=== PATIENT | male | born 1965 | race Caucasian/White ===

== ENCOUNTER → 2017-05-13 09:00 | Outpatient (CLI) | payer BC ==
[~2017-05-13 09:00] MED LIST: BASAGLAR K100 UNIT/1 SC; BAYER CHEWABLE81 MG PO; CORDARONE200 MG PO; GLUCOPHAGE XR750 MG PO; HEMOCYTE PLUS C1 CAP PO; HYDROCODONE-APA1 TAB PO; LIPITOR20 MG PO; LOPRESSOR25 MG PO
--- NOTE | 2017-05-17 09:53 | EC ---
PATIENT:YAZAN FUNEZ DATE OF SERVICE: 05/13/17 SEX: M MEDICAL RECORD: [id number] DATE OF : 63 [facility] AGE OF PATIENT: 52 ADMISSION DATE: 05/13/17 REFERRING PHYSICIAN: INTERPRETING PHYSICIAN: NIKA ADAMS MD ECHOCARDIOGRAM REPORT ECHO CHARGES 4 ECHO COMPLETE CLINICAL DIAGNOSIS: ABN EKG, CHEST PAIN ECHOCARDIOGRAPHIC MEASUREMENTS (adult normal given) AC root (d.<3.7cm) 3.4 cm LV Septum d (<1.2 cm> 0.90 cm Valve Excursion 1.8 cm LV Septum (systole) 1.4 cm Left Atria (s.<4.0cm> 3.7 cm LVPW d(<1.2cm) 1.2 cm RV (d.<2.3cm) 3.6 cm LVPW (sytole) 1.5 cm LV diastole(<5.6CM) 5.3 cm MV E-F(>70mm/sec) cm LV systole 3.7 cm LVOT Diameter 2.0 cm MV exc.(>10mm) cm Est.ejection fraction (50-75%) % Pericardial Effusion N DOPPLER: LVIT cm/sec A 54.0 cm/sec E 69.0 cm/sec LA cm/sec RVSP 18 mmHg LVOT 128 cm/sec AOP1/2T m/s Asc. Ao 134 cm/sec RVOT 68 cm/sec RA cm/sec PA 128 cm/sec AV Gradient Peak 7.23 mmHg AV Mean 3.90 mmHg AV Area 3.1 cm MV Gradient Peak 2.81 mmHg MV Mean 0.99 mmHg MV Area cm COMMENTS: Infrastructure Manager: 2 SERAFIN GARICA Dry Starch Supervisor: 4 Dr. Adams TAPE# PACS DATE OF SERVICE: 05/13/2017 TRANSTHORACIC ECHOCARDIOGRAM FINDINGS: 1. The left ventricle is normal size, normal shape, normal function, ejection fraction of 55%. Inflow characteristics are normal. 2. The mitral valve has [id number]-us-vlnf mitral regurgitation. 3. The left atrium is normal size, normal function. 4. The tricuspid valve has trace tricuspid regurgitation, normal right ECHOCARDIOGRAM REPORT [id number] YAZAN FUNEZ ventricular systolic pressures. 5. Pericardium is normal. There is no pericardial effusion. 6. Pulmonic valve is not well visualized, but otherwise normal by Doppler evaluation. 7. The right atrium is normal size, normal function. 8. Right ventricle is mildly dilated at 3.1 to 3.2 cm. CONCLUSIONS: The patient has structurally normal heart with mildly dilated right ventricle with normal demonstrated right ventricular pressures. TRANSINT:[id number] Voice Confirmation ID: [id number] DOCUMENT ID: [id number] NIKA ADAMS MD at 0953 CC: [id number] DICTATION DATE: 05/14/17 1251 EXCELSIOR PICKER: 05/14/17 1356 DEP CLI 05/13/17 [facility] [address] [place] [address]
[2017-06-10 09:58] VITALS: BMI 29.7
== END | disposition home or self-care (01) ==
LOC: D.ECHO 09:00
DX: R94.31 Abnormal electrocardiogram [ECG] [EKG] (principal); R07.9 Chest pain, unspecified

== ENCOUNTER 2017-05-20 06:05 | Outpatient (CLI) | payer BC ==
--- NOTE | ~2017-05-20 | HEMODYNAMI ---
PATIENT:YAZAN FUNEZ MEDICAL RECORD: [id number] : 63 LOCATION:[facility] ADMISSION DATE: 05/20/17 Generatedon:05/20/20177:55 Patient name: YAZAN FUNEZ Patient #: [id number] SSN: : 1965 Date of study: 05/20/2017 Page: Of Hemodynamic Procedure Report Patient Data Patient Demographics Procedure consent was obtained First Name: YAZAN Gender: Male Last Name: DEE DEE : 1965 Middle Initial: BONG Age: 52 year(s) Patient #: [id number] Race: Unknown Additional ID: [id number] Contact details [address]: [address] [place] [address] State: [place] City: [place] Zip code: [address] Admission Admission Data Admission Date: 05/20/2017 Admission Time: 6:05 Procedure Procedure Types Cath Procedure Diagnostic Procedure LHC LHC w/Coronaries Miscellaneous Procedures Moderate Sedation up to 15 minutes Procedure Description Procedure Date Procedure Date: 05/20/2017 Procedure Start Time: 7:39 Procedure End Time: 7:55 Procedure Staff Name Function Leandro Howard MD Performing Physician Angeles Lacy RT Scrub Elvin Buck RN Nurse Josue Willoughby RT Monitor Procedure Data Cath Procedure Fluoroscopy Diagnostic fluoroscopy Total fluoroscopy Time: 2 time: 2 min min Diagnostic fluoroscopy Total fluoroscopy dose: 523 dose: 523 mGy mGy Contrast Material Contrast Material Type Amount (ml) Isovue 300 35 Entry Location Entry Primary Successful Side Size Upsize Upsize Entry Closure Succes sful Closure Location (Fr) 1 (Fr) 2 (Fr) Remarks Device Remarks Femoral Right 5 Fr Exoseal artery Estimated blood loss: 10 ml Diagnostic catheters Device Type Used For End Catheter Placement Cordis 5Fr JL 4.0 Procedure Catheter (MP) Cordis 5Fr 3DRC Catheter Procedure (MP) Cordis 5Fr Pigtail Procedure Catheter (MP) Procedure Complications No complications Procedure Medications Medication Administration Route Dosage 0.9% NaCl I.V. 100 ml/hr Oxygen NC 2 l/min Heparin Flush Bag added to field 2 bags (1000units/500ml NS) Lidocaine 2% added to field 20 Versed I.V. 2 mg Fentanyl I.V. 25 mcg Hemodynamics Rest Heart Rate: 79 (bpm) Pressure Samples Time Site Value (mmHg) Purpose Heart Use Rate(bpm) 7:43 AO 114/64(84) Snapshot 73 7:49 LV 128/-11,9 EDP 75 7:50 AO 117/68(89) Pullback 72 7:50 LV 110/7,7 Pullback 72 Gradients Valve Time Site 1 Site 2 Mean SEP/DFP Peak To Heart Use (mmHg) (sec/min) Peak Rate (mmHg) (bpm) Aortic 7:50 LV AO 0 9 0 72 110/7,7 117/68(89) Calculations Valve P-P Mean Valve Index Valve Source Name Gradient Area Flow (cm2) Aortic 0 0 0 0 Snapshots Pre Cath Intra NCS Post Cath Vital Signs Time Heart Resp SPO2 etCO2 NIBP (mmHg) Rhythm Pain Sedation Rate (ipm) (%) (mmHg) Status Level (bpm) 7:33:15 82 18 100 34.7 164/97(129) NSR 0 (11) 10(A) , No pain 7:37:58 79 18 98 34.7 150/96(123) NSR 0 (11) 10(A) , No pain 7:42:39 73 16 97 38.5 140/87(105) NSR 0 (11) 9(A) , No pain 7:47:29 73 16 96 36.9 139/85(100) NSR 0 (11) 9(A) , No pain 7:52:12 76 16 97 34.7 139/92(109) NSR 0 (11) 10(A) , No pain Medications Time Medication Route Dose Verified Delivered Reason Notes Effec tiveness by by 7:27:50 0.9% NaCl I.V. 100 Elvin Elvin Per ml/hr Heber montejo RN RN 7:28:02 Oxygen NC 2 Elvin Elvin Per l/min Heber Buck physician RN RN 7:28:35 Heparin Flush added 2 Elvin Leandro used for Bag to bags Heber Howard MD procedure (1000units/500ml field RN NS) 7:30:02 Lidocaine 2% added 20ml Elvin Elvin for local to vial Lorigan Lorigan anesthetic field RN RN 7:39:30 Versed I.V. 2 mg Elvin Elivn for Lorigan Lorigan sedation RN RN 7:39:41 Fentanyl I.V. 25 Elvin Elvin for mcg Lorigan Lorigan sedation RN staff psychologist Log Time Note 7:00:24 Josue Willoughby RT(R) sent for patient. Start room use. 7:11:25 Time tracking: Regular hours 7:11:29 Plan of Care:Hemodynamics will remain stable., Cardiac rhythm will remain stable., Comfort level will be maintained., Respiratory function will remain adequate., Patient/ family verbilizes understanding of procedure., Procedure tolerated without complication., Recovers from procedure without complications.. 7:22:28 Patient received from Pre/Post Procedure Room to CCL 1 Alert and oriented. Tansferred to table in Supine position. 7:22:31 Warm blankets applied, and magui hugger turned on for patient comfort. 7:22:32 Correct patient and procedure confirmed by team. 7:22:33 Signed procedure consent form obtained from patient. 7:27:50 0.9% NaCl 100 ml/hr I.V. was administered by Elvin Buck RN; Per physician; 7:28:02 Oxygen 2 l/min NC was administered by Elvin Buck RN; Per physician; 7:28:35 Heparin Flush Bag (1000units/500ml NS) 2 bags added to field was administered by Leandro Howard MD; used for procedure; 7:30:02 Lidocaine 2% 20ml vial added to field was administered by Elvin Buck RN; for local anesthetic; 7:32:17 Vital chart was started 7:36:36 ECG and BP/O2 sat monitors applied to patient. 7:36:38 Baseline sample Acquired. 7:36:42 Rhythm: sinus rhythm 7:36:43 Full Disclosure recording started 7:37:00 H&P Date Dictated: 05/15/2017 Within 30 days and on chart., H&P Addendum completed by physician on day of procedure. (MUST COMPLETE FOR ALL OUTPATIENTS). 7:37:03 Pre-procedure instructions explained to patient. 7:37:03 Pre-op teaching completed and patient verbalized understanding. 7:37:08 Family in waiting room. 7:37:10 Patient NPO since Midnight. 7:37:13 Is the patient allergic to Iodine/contrast media? No. 7:37:16 Is patient on blood thinner?No 7:37:18 Patient diabetic? Yes. 7:37:19 If diabetic: On Metformin? Yes 7:37:21 If on Metformin: Last Dose? 05/20/2017 7:37:24 Previous problem with sedation/anesthesia? No ? 7:37:29 Snore? Yes 7:37:34 Sleep apnea? No 7:37:35 Deviated septum? No 7:37:36 Opens mouth fully? Yes 7:37:37 Sticks out tongue? Yes 7:37:39 Airway obstruction? No ? 7:37:42 Dentures? No ? 7:37:44 Pre procedure: right dorsailis pedis pulse 1+ Palpable, but thready & weak; easily obliterated 7:37:50 Modified [facility] test Ulnar > 7 seconds. 7:38:08 FAILED ALLENS 7:38:11 Patient pain scale 0/10 ?. 7:38:17 IV patent on arrival in left forearm with 0.9% NaCl at O. 7:38:19 Lab results completed and on chart. 7:38:23 Right groin area was prepped with chlora-prep and draped in sterile fashion 7:38:24 Alarms reviewed by R. N. 7:38:24 Sharps counted by scrub and verified by R.N. 7:38:26 --------ALL STOP TIME OUT------ 7:38:27 Final Timeout: patient, procedure, and site verified with staff and physician. All members of the team are in agreement. 7:38:29 Right groin site verified by team. 7:38:31 Physical assessment completed. ASA score P 2 - A patient with mild systemic disease as per Leandro Howard MD. 7:38:34 Sedation plan: IV Moderate Sedation Versed, Fentanyl 7:39:04 Use device set Femoral Dx 7:39:05 Tegaderm 4 x 4 opened to sterile field. 7:39:06 Acist Hand Control opened to sterile field. 7:39:08 Acist Manifold opened to sterile field. 7:39:09 Acist Syringe opened to sterile field. 7:39:09 Bag Decanter opened to sterile field. 7:39:09 Medline Cath Pack opened to sterile field. 7:39:10 Terumo 5Fr Driggs Sheath opened to sterile field. 7:39:10 St Ace 260cm J .035 wire opened to sterile field. 7:39:11 Diagnostic Infinity 5Fr Multipack catheter opened to sterile field. 7:39:19 Cook 4Fr Micropuncture ([id number]) opened to sterile field. 7:39:28 Procedure started. 7:39:30 Versed 2 mg I.V. was administered by Elvin Buck RN; for sedation; 7:39:32 Local anesthetic to right femoral artery with Lidocaine 2% by Leandro Howard MD.INITIAL ACCESS ONLY 7:39:41 Fentanyl 25 mcg I.V. was administered by Elvin Buck RN; for sedation; 7:41:54 Zero performed for pressure channel P1 7:41:56 Zero performed for pressure channel P1 7:42:01 Access obtained with 4Fr micropunture. 7:42:14 A 5 Fr sheath was inserted into the Right Femoral artery 7:42:20 A Cordis 5Fr JL 4.0 Catheter (MP) was advanced over the wire and used for Procedure. 7:43:27 LCA angiography performed. 7:45:47 Catheter exchanged over wire. 7:46:48 A Cordis 5Fr 3DRC Catheter (MP) was advanced over the wire and used for Procedure. 7:47:38 RCA angiography performed. 7:48:06 Catheter exchanged over wire. 7:48:14 A Cordis 5Fr Pigtail Catheter (MP) was advanced over the wire and used for Procedure. 7:49:40 LV angiography performed. 7:49:42 LV gram done using THORPE 7:49:47 EF : 50 % 7:50:08 LV hemodynamics recorded. 7:50:11 Injector settings: Ml/sec: 12, Volume: 8, 7:50:22 Catheter removed. 7:50:31 Cordis 5Fr Exoseal opened to sterile field. 7:50:39 Sheath removed intact; hemostasis achieved with Exoseal to the Right Femoral artery. 7:50:51 Procedure ended.(Physican Out) 7:50:58 Fluoroscopy time 02.00 minutes. 7:51:03 Fluoroscopy dose: 523 mGy 7:51:03 Flurop Dose total: 523 7:51:06 Contrast amount:Isovue 300 35ml. 7:51:08 Sharps counted by scrub and verified by R.N. 7:51:11 Insertion/operative site no bleeding no hematoma. 7:51:15 Post-op/insertion site Right Femoral artery dressed using a 4 x 4 and Tegaderm. 7:51:16 Post Procedure Pulses reassessed and unchanged 7:51:19 Post-procedure physical assessment completed. ASA score P 2 - A patient with mild systemic disease as per Leandro Howard MD. 7:51:22 Post procedure rhythm: unchanged. 7:51:25 Estimated blood loss: 10 ml 7:51:27 Post procedure instruction explained to patient.Patient verbalizes understanding. 7:51:27 Patient needs reinforcement of post procedure teaching. 7:51:36 Procedure type changed to Cath procedure, Diagnostic procedure, LHC, LHC w/Coronaries, Miscellaneous Procedures, Moderate Sedation up to 15 minutes 7:51:38 Procedure and supply charges have been captured, reviewed, submitted and are correct. 7:51:45 Procedure Complication : No complications 7:55:08 Vital chart was stopped 7:55:08 See physician's report for complete and final results. 7:55:10 Report given to Pre/Post Procedure Room. 7:55:13 Patient transfered to Pre/Post Procedure Room with Stretcher. 7:55:16 Procedure ended. 7:55:16 Full Disclosure recording stopped 7:55:23 End room use (Document Last) Device Usage Item Name Manufacture Quantity Catalog Hospital Part Current Minimal Lot# / Number Charge Number Stock Stock Serial# Code Tegaderm 4 x 3M 1 [id number] [id number] 938783 003463 5 4 Acist Hand Acist 1 38919 620767 221342 762302 5 Control [employer] Inc Acist Acist 1 37055 244397 230805 217890 5 Manifold Medical [employer] Inc Acist Syringe Acist 1 04172 014933 584223 535063 20 Medical Systems Inc Bag Decanter Microtek 1 2001S 452731 29321 283599 5 Medical Inc. Medline Cath Cardinal 1 [id number] 740105 29628 766221 5 Built In Terumo 5Fr Terumo 1 [id number] 533994 806996 682672 [address] Ace 260[address] St Ace 1 596504 793131 286818 283217 30 J .035 wire Diagnostic Cardinal 1 [id number] 298013 32292 414920 30 Infinity 5Fr Health Multipack catheter Cook 4Fr Cook Medical 1 [id number] 017732 706390 938244 5 Micropuncture ([id number]) Cordis 5Fr JL Cardinal 1 [id number] 5 4.0 Catheter Health (MP) Cordis 5Fr Cardinal 1 596795 5 3DRC Catheter Health (MP) Cordis 5Fr Cardinal 1 091062 5 Pigtail Health Catheter () Cordis 5Fr Cardinal 1 EX500 698482 538478 174555 10 [facility] [employer] Signature Audit [place] Stage Time Signature Unsigned Intra-Procedure 05/20/2017 Josue Willoughby 7:55:48 AM RT(R) Signatures Monitor : Josue Willoughby RT Signature : Date : Time : [id number] [place] [address]
[2017-05-20] MEDS ORDERED: GLUCOPHAGE XR750 MG PO (06:30)
[2017-05-20] MEDS ORDERED: BAYER CHEWABLE81 MG PO (06:31)
[2017-05-20] MEDS ORDERED: BASAGLAR K100 UNIT/1 SC (06:31)
[2017-05-20] MEDS ORDERED: LIPITOR20 MG PO (06:32)
[2017-05-20 06:39] VITALS: BP 152/84; BMI 28.4
[2017-05-20 07:18] LABS: BASOPHILS 0.5 % (0-2); HEMATOCRIT 46.7 % (42.0-54.0); HEMOGLOBIN 16.1 g/dL (13.5-17.5); IMMATURE GRANULOCYTES 0.5 % (0-5); MCH 30.5 pg (26.0-34.0); MCHC 34.5 g/dL (31.0-37.0); MCV 88.4 fL (80.0-100.0); MEAN PLATELET VOLUME 10.6 fL (7.4-10.4); MONOCYTES 7.9 % (2-11); NEUTROPHILS 49.1 % (40-80); PLATELET COUNT 161 10x3/uL (130-400); RBC 5.28 10x6/uL (4.20-6.10); RDW 12.7 % (11.5-14.5); WBC 6.6 10x3/uL (4.8-10.8)
[2017-05-20 07:23] LABS: CALC OSMOLALITY 291 mosm/kg (275-300); CALCIUM 8.9 mg/dL (8.5-10.1); CARBON DIOXIDE 24.5 mmol/L (21.0-32.0); CHLORIDE - SERUM 104 mmol/L (98-107); GLUCOSE 266 mg/dL (74-106); POTASSIUM - SERUM 4.2 mmol/L (3.5-5.1); SODIUM 139 mmol/L (136-145); UREA NITROGEN 26 mg/dL (7-18); eGFR NON AFRICAN AMERICAN 83 mL/min (90-120)
--- NOTE | 2017-05-20 08:15 | NUR ---
2L NC, NO RESP DISTRESS NOTED. RIGHT GROIN 5F EXOSEAL CDI, NO BLEEDING OR HEMATOMA NOTED. NO C/O PAIN OR NAUSEA. VSS. AT BEDSIDE, CALL LIGHT WITHIN REACH.
--- NOTE | 2017-05-20 08:45 | NUR ---
RESTING QUIETLY WITH EYES CLOSED. RIGHT GROIN 5F EXOSEAL CDI, NO BLEEDING OR HEMATOMA NOTED. 2L NC, NO RESP DISTRESS NOTED. VSS. WILL CONTINUE TO MONITOR.
--- NOTE | 2017-05-20 09:00 | NUR ---
RIGHT GROIN 5F EXOSEAL CDI, NO BLEEDING OR HEMATOMA NOTED. 2L NC, NO RESP DISTRESS. VSS. CALL LIGHT WITHIN REACH.
--- NOTE | 2017-05-20 09:47 | NUR ---
HOB ELEVATED 30 DEGREES. RIGHT GROIN 5F EXOSEAL CDI, NO BLEEDING NOTED. SANDWICH TRAY AND DRINK GIVEN.
--- NOTE | 2017-05-20 10:19 | NUR ---
LEFT FA PIV D/C'D WITH CATHETER INTACT, BAND AID TO SITE. UP TO BEDSIDE TO GET DRESSED.
--- NOTE | 2017-05-20 10:25 | NUR ---
DISCHARGE INSTRUCTIONS GIVEN, VERBALIZED UNDERSTANDING.
--- NOTE | 2017-05-20 10:31 | NUR ---
TAKEN OUT VIA WHEELCHAIR BY CATH SNAKER TRACTOR DRIVER. LEFT FACILITY WITH FAMILY MEMBER AND ALL PERSONAL BELONGINGS.
== END 2017-05-20 10:30 | disposition home or self-care (01) ==
LOC: D.CATH 06:05
PROVIDERS: Internal Medicine Cardiovascular Disease
DX: I25.119 Atherosclerotic heart disease of native coronary artery with unspecified angina pectoris (principal); I25.5 Ischemic cardiomyopathy; E11.9 Type 2 diabetes mellitus without complications; Z01.812 Encounter for preprocedural laboratory examination

== ENCOUNTER → 2017-05-26 11:54 | Outpatient (CLI) | payer BC ==
[2017-05-20 06:39] VITALS: BMI 28.4
[2017-05-27 11:19] LABS: HEPATITIS C ANTIBODY <0.1 (0.0-0.9)
== END | disposition home or self-care (01) ==
LOC: D.US 11:30
PROVIDERS: Internal Medicine Cardiovascular Disease
DX: Z01.812 Encounter for preprocedural laboratory examination (principal); R55 Syncope and collapse

== ENCOUNTER 2017-06-09 05:09 | Inpatient (IN) | payer BC ==
[2017-06-08 10:57] LABS: APPEARANCE CLEAR (CLEAR); BILIRUBIN NEGATIVE (NEGATIVE); COLOR YELLOW (YELLOW); GLUCOSE 1000 mg/dL (NEGATIVE); KETONE NEGATIVE (NEGATIVE); NITRITE NEGATIVE (NEGATIVE); PROTEIN NEGATIVE (NEGATIVE); SPECIFIC GRAVITY 1.015 (1.005-1.020); UROBILINOGEN NORMAL (NORMAL)
[2017-06-08 11:25] LABS: BASOPHILS 0.5 % (0-2); EOSINOPHILS 2.1 % (0-7); HEMATOCRIT 47.8 % (42.0-54.0); HEMOGLOBIN 16.6 g/dL (13.5-17.5); IMMATURE GRANULOCYTES 0.4 % (0-5); LYMPHOCYTES 36.6 % (15-50); MCH 30.2 pg (26.0-34.0); MCHC 34.7 g/dL (31.0-37.0); MCV 87.1 fL (80.0-100.0); MEAN PLATELET VOLUME 10.3 fL (7.4-10.4); MONOCYTES 6.4 % (2-11); PLATELET COUNT 185 10x3/uL (130-400); RBC 5.49 10x6/uL (4.20-6.10); RDW 12.6 % (11.5-14.5); WBC 7.7 10x3/uL (4.8-10.8)
[2017-06-08 11:44] LABS: APTT 23.9 SECONDS (22.8-39.4); INR 0.94 (0.85-1.17); PROTIME 12.5 SECONDS (11.6-15.0)
[2017-06-08 11:55] LABS: ALBUMIN 4.1 g/dL (3.4-5.0); ANION GAP 13.2 mmol/L (8-16); BILIRUBIN - TOTAL 0.55 mg/dL (0.2-1.3); CALCIUM 9.4 mg/dL (8.5-10.1); CARBON DIOXIDE 26.2 mmol/L (21.0-32.0); CREATININE - SERUM 1.2 mg/dL (0.6-1.3); PHOSPHOROUS 3.5 mg/dL (2.5-4.9); POTASSIUM - SERUM 4.4 mmol/L (3.5-5.1); PROTEIN - SERUM 7.6 g/dL (6.4-8.2); T4 THYROXIN - FREE 0.99 ng/dL (0.76-1.46); THYROID STIMULATING HORMONE 2.52 uIU/mL (0.36-3.74); URIC ACID 4.7 mg/dL (2.6-7.2)
[2017-06-08 12:13] LABS: HEMOGLOBIN A1C 9.4 % (4.8-6.0)
[2017-06-08 13:37] LABS: COLD SCREEN @ 4 DEGREES NEGATIVE (NEGATIVE); COLD SCREEN ROOM TEMP NEGATIVE (NEGATIVE)
[2017-06-09] VITALS (34 sets, daily range): BP systolic 89–142; BP diastolic 51–86; BMI 27.8; BMI 29.8
[~2017-06-09] VITALS: Ht 182.9 cm; Wt 98.7 kg
[~2017-06-09 05:09] MED LIST changes: -CORDARONE200 MG PO; -HEMOCYTE PLUS C1 CAP PO; -HYDROCODONE-APA1 TAB PO; -LOPRESSOR25 MG PO
[2017-06-09 08:04] LABS: PLT FUNCT.(P2Y12) PLAVIX 203 PRU (194-418)
[2017-06-09 14:58] LABS: MCH 30.4 pg (26.0-34.0); MCHC 35.4 g/dL (31.0-37.0); MCV 85.9 fL (80.0-100.0); MEAN PLATELET VOLUME 9.9 fL (7.4-10.4); RDW 12.6 % (11.5-14.5)
[2017-06-09 15:05] LABS: CALC OSMOLALITY 299 mosm/kg (275-300); CALCIUM 7.6 mg/dL (8.5-10.1); CHLORIDE - SERUM 110 mmol/L (98-107); GLUCOSE 208 mg/dL (74-106); SODIUM 146 mmol/L (136-145); UREA NITROGEN 21 mg/dL (7-18)
[2017-06-09 15:06] LABS: CREATININE - SERUM 0.8 mg/dL (0.6-1.3); eGFR NON AFRICAN AMERICAN > 90 mL/min (90-120)
[2017-06-09 15:15] LABS: APTT 29.4 SECONDS (22.8-39.4); HEMATOCRIT 33.6 % (42.0-54.0); HEMOGLOBIN 11.9 g/dL (13.5-17.5); INR 1.19 (0.85-1.17); RBC 3.91 10x6/uL (4.20-6.10); WBC 10.8 10x3/uL (4.8-10.8)
--- NOTE | 2017-06-09 16:00 | NUR ---
RECIEVED PT FROM OR. ATTACHED TO ICU MONITORS. ADMISSION ASSESSMENT COMPLETE PER FLOWSHEET. REFER FOR DETAILS.
--- NOTE | 2017-06-09 17:00 | NUR ---
FAMILY AT BEDSIDE. UPDATE PROVIDED.
--- NOTE | 2017-06-09 18:00 | NUR ---
DR. CUMMINGS AT BEDSIDE. CHANGED TPM SETTINGS TO VVI 60/VMA 10.
--- NOTE | 2017-06-09 19:00 | NUR ---
REC'D TO CARE, BRIDGE CONSTRUCTION INSPECTOR PER FLOWSHEET. PT ON MECH VENT VIA OETT - SEE FLOWSHEET. PT OPENS EYES TO NAME AND NODS HEAD APPROP.R IJ KAYLANTIERNEY, DSG C/D/I - TO VIGILANCE - SEE FLOWSHEET, WILL TITRATE GTTS PER MD ORDERS. L DLSC, DSG C/D/I. STERNAL, SUBSTERNAL AND R LEG DSGS NOTED. [employer] TPM VVI 60 - SENSING- WIRES SECURED TO SUBSTERNAL DSG WITH CT X 3 TO 20CM SXN, BLOODY DRAINAGE, NO AIR LEAK NOTED. R RADIAL A-LINE, DSG C/D/I, ARM BOARD IN USE. CRITICORE ZEPEDA PATENT WITH CLEAR, JONG URINE NOTED. B/L SOFT WRIST RESTRAINTS ON PER MD ORDERS. ALARMS ON. WILL CONT 1:1 NURSING CARE.
--- NOTE | 2017-06-09 20:20 | NUR ---
DR. CUMMINGS UPDATED OVER PHONE, STATUS REPORT GIVEN, NO NEW ORDERS. PT WAKING UP, ORIENTED TO SITUATION BY NURSE. VSS.
--- NOTE | 2017-06-09 20:40 | NUR ---
AT , UPDATE GIVEN AND QUESTIONS ANSWERED.
--- NOTE | 2017-06-09 20:57 | NUR ---
CONT TO WEAN VENT, PT UNDERSTANDS WEANING PROCESS. VSS.
--- NOTE | 2017-06-09 21:15 | NUR ---
VENT TO CPAP PER RT. PT NODS "YES" TO UNDERSTANDING. RR 14-16, UNLAB. POX 99%.
--- NOTE | 2017-06-09 22:14 | NUR ---
WNL. PLAN TO EXTUBATE.
--- NOTE | 2017-06-09 22:20 | NUR ---
PT EXTUBATED TO 4L NC, GOOD COUGH. RESTRAINTS D/C'D. ORAL CARE DONE.
--- NOTE | 2017-06-09 22:57 | NUR ---
AT BS. PT USING MORPHINE RECORD LABEL INTERNSHIP - REPORTS "ITS BETTER". REPOSITIONED WITH PILLOWS FOR COMFORT. CONT 1:1 NURSING CARE. VSS.
[2017-06-10] VITALS (93 sets, daily range): BP systolic 91–120; BP diastolic 46–63; Ht 182.9 cm; Wt 98.7 kg
--- NOTE | 2017-06-10 02:11 | NUR ---
ABGS RESULTED, KCL COVERAGE PER S/S. PT REPOSITIONED UP IN BED, CONT TO TAKE ICE CHIPS - NO NAUSEA. PT USING HAM STRIPPER.
--- NOTE | 2017-06-10 03:17 | NUR ---
REASSESSMENT PER FLOWSHEET, NO ACUTE CHANGES. RT AT BS FOR RESP TX. I.S. TO 750 X 10, WEAK COUGH BUT IMPROVED EFFORT.
[2017-06-10 06:26] LABS: MCH 30.1 pg (26.0-34.0); MCHC 34.4 g/dL (31.0-37.0); MCV 87.5 fL (80.0-100.0); MEAN PLATELET VOLUME 9.3 fL (7.4-10.4)
[2017-06-10 06:28] LABS: HEMATOCRIT 25.9 % (42.0-54.0); HEMOGLOBIN 8.9 g/dL (13.5-17.5); RBC 2.96 10x6/uL (4.20-6.10); WBC 7.3 10x3/uL (4.8-10.8)
[2017-06-10 07:02] LABS: ALBUMIN 3.5 g/dL (3.4-5.0); ALKALINE PHOSPHATASE 13 U/L (46-116); BILIRUBIN - TOTAL 0.44 mg/dL (0.2-1.3); CALCIUM 8.2 mg/dL (8.5-10.1); CARBON DIOXIDE 26.3 mmol/L (21.0-32.0); CHLORIDE - SERUM 111 mmol/L (98-107); CREATININE - SERUM 0.9 mg/dL (0.6-1.3); POTASSIUM - SERUM 4.1 mmol/L (3.5-5.1); SODIUM 146 mmol/L (136-145); UREA NITROGEN 16 mg/dL (7-18); eGFR NON AFRICAN AMERICAN > 90 mL/min (90-120)
[2017-06-10 07:03] LABS: ALT (SGPT) 27 U/L (10-68); CALC OSMOLALITY 292 mosm/kg (275-300); GLUCOSE 113 mg/dL (74-106); PROTEIN - SERUM 5.3 g/dL (6.4-8.2)
--- NOTE | 2017-06-10 07:30 | NUR ---
SHIFT ASSESSMENT VIA FLOWSHEET. SEE FOR DETAILS. VSS, SR ON CM.
--- NOTE | 2017-06-10 07:46 | NUR ---
PT PERFORMS I/S, 750-1000 X10. WEAK COUGH, GOOD EFFORT. PT EDUCATED ABOUT IMPORTANCE OF POST OF COUGHING AND DEEP BREATHING.
--- NOTE | 2017-06-10 07:48 | NUR ---
DR ALTMAN HERE TO SEE PATIENT.
--- NOTE | 2017-06-10 08:10 | NUR ---
AT BEDSIDE, UPDATE PROVIDED. PT AWAKENS BRIEFLY, C/O PAIN, PUSHES FIELD COIL WINDER THEN GOES BACK TO SLEEP. VSS. 1:1 NURSING CARE IN PROGRESS.
--- NOTE | 2017-06-10 08:21 | NUR ---
DR ADAMS HERE TO SEE PT.
--- NOTE | 2017-06-10 08:50 | NUR ---
DR CUMMINGS HERE TO SEE PT, NEW ORDERS RECEIVED.
--- NOTE | 2017-06-10 09:12 | NUR ---
STEFANY BERNAL FINISHED CIGAR MAKER AT BEDSIDE. PT AWAKE AND ANSWERING QUESTIONS.
--- NOTE | 2017-06-10 11:07 | NUR ---
RT AT BEDSIDE FOR BREATHING TX.
--- NOTE | 2017-06-10 11:15 | NUR ---
REASSESSMENT VIA FLOWSHEET, SEE FOR DETAILS. VSS, SR ON CM. WEANING DOPAMINE. 1:1 NURSING CARE.
--- NOTE | 2017-06-10 11:45 | NUR ---
RECEIVED PT FOR CARE FROM GILSON PETERSON RN.
--- NOTE | 2017-06-10 13:17 | NUR ---
* Is the patient Alert and Oriented? Yes 0 * How many steps to enter\exit or inside your home? 0 0 * PCP Dr. Gomes 0 * Pharmacy [facility] 0 * Preadmission Environment Home with Family 0 * ADLs Independent 0 * Equipment Glucometer 0 * List name and contact numbers for known caregivers / representatives who currently or will assist patient after discharge: Spouse - Kitty [phone] 0 * Additional services required to return to the preadmission environment? No 0 * Can the patient safely return to the preadmission environment? Yes 0 * Has this patient been hospitalized within the prior 30 days at any hospital? No Patient Name: YAZAN FUNEZ Admission Status: Elective Accout number: [id number] Admission Date: 06-09-2017 : 1965 Admission Diagnosis: Attending: JAIME CUMMINGS Current LOS: 1 Anticipated DC Date: 06-17-2017 Planned Disposition: Home Primary Insurance: Insurity OUT OF STATE Discharge Planning Comments: CM met with patient to assess dc plans/needs. Patient states he lives at home with his , Kitty. 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 At dc, he will return home with his . No needs identified or verbalized at this time. CM will follow & assist as needed. Digital Production Artist: Paradise Randall
--- NOTE | 2017-06-10 19:00 | NUR ---
1900: Pt rec'd resting HOB 30 degrees with eyes open. Pt pupils ALNOZO+ bilat. Pt is alert and oriented. Pt c/o pain from incisions and back soreness. Pt denies tingling, numbness, or nausea at this time. Pt follows all commands and moves x4 extrem weakly vs. gravity. Pt breathing shallow in quality with GF38-78b with SPO2 98%. Lungs clear bilat with decreased bases with auscultation. MMP and no cyanosis noted. Encouraged DBC. Pt with strong non productive cough at this time. RT in room and performed IS. Max TV 1000cc achieved. S1S2 regular ST 100's on CM. Right jugular [place] Franky cath transduced to CM with PA/CVP monitorring with proper w/fs. Prox infusion port with Amiodarone, NS, Plasmalyte as per IV flow sheet. Midline sternal dressing CDI, distal portion of dressing in the epigastric area with TPM wires taped intact. TPM VVI 60/0/10 showing V-Sensing. ABD distended and pt reports he is not passing gas at this time. BS absent x4. Pt does not c/o tenderness or pain in ABD with palpation. Gerard to gravity with approx 30 cc/hr dark yellow UOP. Criticore collection device in use with Temp 38.2C noted. Right lower extrem with multiple small incision sites coverred with 4x4s and hepafix tape. X2 JAVIER drains noted with minimal output. (See drains in assessment) Bilateral PAULINA/SCD intact. Right radial ART line with armboard support intact and transduced to CM with proper wf and monitorring. SR up x2, SHEET ROCK APPLIER in use and pt demonstrated use, 1:1 nursing continues.
--- NOTE | 2017-06-10 20:00 | NUR ---
2000: Assisted pt with turning onto side and provided water as per request. Pt denies difficulty with swallow. No change in pt RESP/CV/NV status. FSBS 149 and Inuslin gtt increased to 2.5 units/hr to maintain CM.
--- NOTE | 2017-06-10 20:30 | NUR ---
2030: Pt daughter at bedside. Update provided and verbalized understanding. Pt resting at this time with eyes closed, but open to verbal and responds to all questions. Pt remains SR/ST 99-105bpm with Temp 38-38.2C SBP 90-105. No change in IVF/UOP.
--- NOTE | 2017-06-10 21:45 | NUR ---
2145: No change in pt RESP/CV/NV status. No change in IVF/UOP. See IV gtts and I/O for findings.
--- NOTE | 2017-06-10 22:12 | NUR ---
CM - 3:1 AFLUTTER, PT MORE CALM AT THIS TIME, STILL CONFUSED.
[2017-06-11] VITALS (57 sets, daily range): BP systolic 88–143; BP diastolic 46–84
--- NOTE | 2017-06-11 | NUR ---
0000: Pt temp 38.4C per Criticore Cath. Tylenol admin as per EMAR.
--- NOTE | 2017-06-11 01:00 | NUR ---
0100: Continue to titrate Insulin per protocol.
--- NOTE | 2017-06-11 02:15 | NUR ---
0215: No change in pt RESP/CV/NV status. Continue to titrate Insulin as per protocol. Pt resting with eyes closed at this time and open to verbal. Assisted pt with sips of water as per request.
--- NOTE | 2017-06-11 02:25 | NUR ---
0225: Pt SBP decreased at 85-90. ABG completed and reviewed. No changes at this time.
--- NOTE | 2017-06-11 03:05 | NUR ---
0305: Pt repositioned to right side. Pt c/o pain with movement. Pt SBP 85-90 at this time. Pt remains SR/ST 95-105bpm. Temp 38.0C per criticore. UOP remains 20-35cc/hr. Continue to titrate Insulin gtt as per orders. SVR reading showing 100-200 at this time. Dopamine gtt restarted at 7 cc/hr. (2 mcg/kg/min) CVP and PA pressures as per flow sheet.
--- NOTE | 2017-06-11 03:15 | NUR ---
0315: Pt remains with decreased SBP per right radial ART line 85-90's. Pt remains SR/ST 95-105 bpm. No change in IVF's at this time and UOP remains 20-35 cc/hr. SVR showing 140's. SQI3 on vigilance monitor. Pt temp 37.9C per Criticore. Notified Dr. Coates. Update provided and reviewed. New orders rec'd. 1 gram CACL- via Buretrol over 1 hour admin, 400cc of 25% Albumin admin at this time.
--- NOTE | 2017-06-11 04:45 | NUR ---
0445: Pt SBP increased 110's at this time. Pt remains SR 95-99bpm. TPM settings unchanged and remains in VVI 60/0/10 V-Sensing. No s/s of bleeding noted in incision sites. Medistinal tube outputs per I/O. Continue to titrate Insulin gtt as per protocol.
--- NOTE | 2017-06-11 06:00 | NUR ---
0600: Pt FSBS 114. Insulin 1/2'd at this time to 3 units/hr.
[2017-06-11 06:16] LABS: HEMATOCRIT 21.8 % (42.0-54.0); MCH 30.2 pg (26.0-34.0); MCHC 33.5 g/dL (31.0-37.0); MEAN PLATELET VOLUME 9.2 fL (7.4-10.4); RBC 2.42 10x6/uL (4.20-6.10); RDW 13.2 % (11.5-14.5); WBC 6.4 10x3/uL (4.8-10.8)
[2017-06-11 06:23] LABS: MCV 90.1 fL (80.0-100.0); PLATELET COUNT 79 10x3/uL (130-400)
[2017-06-11 06:56] LABS: ALBUMIN 4.2 g/dL (3.4-5.0); ANION GAP 14.9 mmol/L (8-16); BILIRUBIN - TOTAL 0.79 mg/dL (0.2-1.3); CALCIUM 9.8 mg/dL (8.5-10.1); CARBON DIOXIDE 25.1 mmol/L (21.0-32.0); PROTEIN - SERUM 6.4 g/dL (6.4-8.2)
[2017-06-11 06:57] LABS: CREATININE - SERUM 1.3 mg/dL (0.6-1.3)
[2017-06-11 07:50] LABS: HEMOGLOBIN 7.3 g/dL (13.5-17.5); PLATELET ESTIMATE DECREASED
--- NOTE | 2017-06-11 08:28 | CN ---
PATIENT NAME:YAZAN FUNEZ MEDICAL RECORD: [id number] : 63 LOCATION:[facility] ADMIT DATE: 06/09/17 ACCOUNT: [id number] CONSULTING PHYSICIAN: BLANCA MELVIN DO REFERRING PHYSICIAN: JAIME CUMMINGS MD DATE OF CONSULTATION: 06/10/2017 HISTORY OF PRESENT ILLNESS: A 52-year-old male patient admitted with extensive cardiovascular disease, status post bypass, consult for management of diabetes, hyperlipidemia. PAST MEDICAL HISTORY: Significant for hypertension, hyperlipidemia, and diabetes. CURRENT MEDICATIONS: Listed as atorvastatin 20 mg daily, Basaglar 50 units daily, glimepiride 4 mg, Januvia, lisinopril, and metformin. ALLERGIES: No known drug allergies. REVIEW OF SYSTEMS: GENERAL: No reported change in weight or appetite. HEENT: No cephalgia, visual changes, tinnitus, epistaxis, or dysphagia. CARDIOVASCULAR: Significant as above. Status post multivessel bypass, doing well. PULMONARY: Denies hemoptysis. GASTROINTESTINAL: Denies hematemesis, hematochezia, or melena. GENITOURINARY: Denies dysuria. MUSCULOSKELETAL: No acute changes. ENDOCRINE: Denies polyuria, polydipsia, or polyphagia. PHYSICAL EXAMINATION: VITAL SIGNS: Temp 98.8, blood pressure 106/56, heart rate 95, respirations 16, and O2 sats 96%. GENERAL: The patient is alert, oriented. No acute distress. Doing well, status post bypass. HEENT: Head is normocephalic, atraumatic. Eyes: Pupils equal, round, reactive. Ears: Canals patent. TMs are intact. Nose: Nares patent without drainage. Throat: No erythema, no exudates. NECK: Supple. No lymphadenopathy, no JVD. HEART: Regular rate and rhythm. LUNGS: Clear to auscultation. ABDOMEN: Soft, nontender. Bowel sounds in all 4 quadrants. EXTREMITIES: Present times 4. NEUROLOGIC: No focal deficits, answers appropriately. ASSESSMENT AND PLAN: 1. Extensive coronary artery disease, status post multivessel bypass, supportive care. 2. Diabetes. Continue present insulin regimen. We will adjust medication after the patient stabilizes from bypass. 3. Hyperlipidemia. Restart medications as the patient stabilizes. Supportive care. I appreciate this consult. We will follow accordingly. CONSULT REPORT [id number] YAZAN FUNEZ TRANSINT:[id number] Voice Confirmation ID: [id number] DOCUMENT ID: [id number] BLANCA MELVIN DO at 0828 CC: [id number] DICTATION DATE: 06/10/17 0758 TRAINING AND DEVELOPMENT PROFESSIONAL: 06/10/[address] [facility] [address] [place] [address]
--- NOTE | 2017-06-11 09:00 | NUR ---
ALL LINES AND TUBES DC'D PER ORDER AND DR. CUMMINGS. ALL DRESSINGS CHANGED. ZEPEDA CATH DC'D. UNIT 1 OF PRBC INFUSION COMPLETE WITHOUT S/SX OF REACTION NOTED. PT TOLERATED WELL. DAUGHTER AT BEDSIDE. NO CURRENT C/O.
--- NOTE | 2017-06-11 09:45 | NUR ---
UP TO CHAIR PER P.T.
--- NOTE | 2017-06-11 10:15 | NUR ---
IS AT 1000 X 10.
--- NOTE | 2017-06-11 11:00 | NUR ---
IS AT 1000 X 10.
--- NOTE | 2017-06-11 12:00 | NUR ---
IS AT 1250 TIMES 5 AND 1000 TIMES 5
--- NOTE | 2017-06-11 14:00 | NUR ---
RECEIVED PATIENT AT THIS TIME. PATIENT IS SITTING UP IN CHAIR. ASSESSMENT COMPLETE. PATIENT DENIES ANY NEEDS AT THIS TIME. CALL LIGHT WITHIN REACH.
--- NOTE | 2017-06-11 14:17 | NUR ---
RESPIRATORY IN ROOM WITH PATIENT. PATIENT DENIES ANY PAIN MEDS AT THIS TIME. CALL LIGHT WITHIN REACH, BED IN LOW POSITION.
--- NOTE | 2017-06-11 17:11 | NUR ---
PATIENT WANTED TO GO BACK TO BED, MINIMAL ASSIST NEEDED. HOB ELEVATED, CALL LIGHT WITHIN REACH, BED IN LOW POSITION.
--- NOTE | 2017-06-11 18:30 | NUR ---
RESPIRATORY THERAPY IN TO SEE PATIENT AT THIS TIME.
--- NOTE | 2017-06-11 19:15 | NUR ---
REPORT RECVD. CARE ASSUMED. INITIAL ASSMNT COMPLETED. SEE FLOWSHEET FOR ALL FINDINGS. AWAKE AND AOX4. PERRLA. MAEW. RESP EVEN AND UNLABORED. SHALLOW AT TIMES. LUNG SOUNDS DIM IN BASES. SPO2 96% ON O2 AT 2 LPM NC. BASKET BRAIDER WEAK COUGH SEEN. FAIR EFFORT WITH INCENTIVE. SR ON THE MONITOR. PULSES PALP. TEDS/SCDS IN PLACE. TEMP PM VVI 60 INTACT, SENSING ONLY. STERNAL AND RIGHT LEG DRESSINGS CDI. DENIES DISCOMFORT. REPOSITIONS SELF IN BED. ABD SOFT, BSA X4 VOIDING TO URINAL TO DISS. HOB UP. BED ALARM ON. C/L IN REACH. CONT CURRENT POC.
--- NOTE | 2017-06-11 21:00 | NUR ---
HS MEDS GIVEN. PRN PERCOCET GIVEN FOR PAIN CONTROL. UP TO BR TO VOID WITH MINIMAL ASSIST. BACK TO BED AND POSITIONED FOR COMFORT. VSS. SR ON THE MONITOR. AT BEDSIDE. UPDATE GIVEN. HOB UP. C/L IN REACH. CONT CURRENT POC.
--- NOTE | 2017-06-11 23:15 | NUR ---
REASSESSMENT COMPLETED. SEE FLOWSHEET FOR ALL FINDINGS. RESTING WITH NO DISTRESS.AOX4. PERRLA. MAEW. RESP EVEN AND UNLABORED. SHALLOW AT TIMES. LUNG SOUNDS DIM IN BASES. SPO2 96 ON O2 AT 2 LPM NC. BOUFFANT CURTAIN MACHINE TENDER WEAK COUGH SEEN. FAIR EFFORT WITH INCENTIVE. SR ON THE MONITOR. PULSES PALP. TEDS/SCDS IN PLACE. TEMP PM VVI 60 INTACT, SENSING ONLY. STERNAL AND RIGHT LEG DRESSINGS CDI. DENIES DISCOMFORT. REPOSITIONS SELF IN BED. ABD SOFT, BSA X4 VOIDING TO URINAL TO DISS. HOB UP. BED ALARM ON. C/L IN REACH. CONT CURRENT POC.
[2017-06-12] VITALS (17 sets, daily range): BP systolic 122–149; BP diastolic 66–86
--- NOTE | 2017-06-12 01:10 | NUR ---
RESTING WITH NO DISTRESS. VSS. SR ON THE MONITOR. DENIES NEEDS/DISCOMFORT. C/L IN REACH. BED ALARM ON. CONT CURRENT POC.
--- NOTE | 2017-06-12 03:15 | NUR ---
REASSESSMENT COMPLETED. SEE FLOWSHEET FOR ALL FINDINGS. RESTING QWITH NO DISTRESS. AOX4. PERRLA. MAEW. RESP EVEN AND UNLABORED. SHALLOW AT TIMES. LUNG SOUNDS DIM IN BASES. SPO2 96 ON O2 AT 2 LPM NC. PULVERIZER FEEDER WEAK COUGH SEEN. FAIR EFFORT WITH INCENTIVE. SR ON THE MONITOR. PULSES PALP. TEDS/SCDS IN PLACE. TEMP PM VVI 60 INTACT, SENSING ONLY. STERNAL AND RIGHT LEG DRESSINGS CDI. DENIES DISCOMFORT. REPOSITIONS SELF IN BED. ABD SOFT, BSA X4 VOIDING TO URINAL TO DISS. HOB UP. BED ALARM ON. C/L IN REACH. CONT CURRENT POC.
--- NOTE | 2017-06-12 05:15 | NUR ---
UP IN CHAIR AFTER XRAY. VSS. DENIES NEEDS. PRN PERCOCET FOR PAIN. C/L IN REACH. CONT CURRENT POC.
[2017-06-12 06:44] LABS: MCH 29.8 pg (26.0-34.0); MCHC 33.7 g/dL (31.0-37.0); MCV 88.6 fL (80.0-100.0); RDW 14.1 % (11.5-14.5)
[2017-06-12 06:46] LABS: HEMATOCRIT 27.9 % (42.0-54.0); HEMOGLOBIN 9.4 g/dL (13.5-17.5); RBC 3.15 10x6/uL (4.20-6.10); WBC 8.5 10x3/uL (4.8-10.8)
[2017-06-12 07:06] LABS: ALBUMIN 3.4 g/dL (3.4-5.0); ANION GAP 14.5 mmol/L (8-16); CARBON DIOXIDE 23.5 mmol/L (21.0-32.0); CREATININE - SERUM 1.3 mg/dL (0.6-1.3); PROTEIN - SERUM 6.1 g/dL (6.4-8.2)
--- NOTE | 2017-06-12 07:50 | NUR ---
SITTING IN CHAIR. DENIES NEEDS. RE[POSITIONED FOR COMFORT. HE HAS ALL LEADS AND O2 SENSOR PULLED OFF. TOLD HIM WE WERE NEEDING TO MONITOR HIM CLOSELY AND TO LEAVE MONITOR HOOKED UP PLEASE.
--- NOTE | 2017-06-12 07:52 | NUR ---
REC'D CARE OF PT. A&O X3.
--- NOTE | 2017-06-12 08:47 | NUR ---
PULLS 1500 ON IS X6. ENCOURAGED COUGH AND DEEP BREATH
--- NOTE | 2017-06-12 08:54 | NUR ---
CONSUMED 80% OF BREAKFAST
--- NOTE | 2017-06-12 09:47 | NUR ---
REMAINS UP IN CHAIR. DENIES NEEDS.
--- NOTE | 2017-06-12 10:13 | NUR ---
AMBULATED WITH DAVID BUSTILLOS PT AND CHANTEL LAW.
--- NOTE | 2017-06-12 11:11 | NUR ---
PULLS [phone] ON IS X6.
--- NOTE | 2017-06-12 12:28 | NUR ---
LUNCH TRAY SERVED
--- NOTE | 2017-06-12 12:42 | NUR ---
USES IS INDEPENDENTLY. PULLS [phone].
--- NOTE | 2017-06-12 13:00 | NUR ---
WANTED TO GET BACK IN BED. ENCOURAGED HIM TO STAY UP OOB IN CHAIR.
--- NOTE | 2017-06-12 13:44 | NUR ---
REMAINS UP TO CHAIR. DENIES NEEDS. LEFT SCDL=SL. RR EVEN AND UNLABORED. CLWR. CPOC.
--- NOTE | 2017-06-12 13:53 | NUR ---
AMBULATED 200 FEET AND BACK IN CHAIR.
--- NOTE | 2017-06-12 18:00 | NUR ---
BACK TO BED FROM CHAIR.
--- NOTE | 2017-06-12 19:20 | NUR ---
REPORT RECVD. CARE ASSUMED. INITIAL ASSMNT COMPLETED. SEE FLOWSHEET FOR ALL FINDINGS. AWAKE AND AOX4. PERRLA. MAEW. RESP EVEN AND UNLABORED. SHALLOW AT TIMES. LUNG SOUNDS DIM IN BASES. SPO2 96 ON O2 AT 2 LPM NC. MARINE FIRER WEAK COUGH SEEN. FAIR EFFORT WITH INCENTIVE. SR ON THE MONITOR. PULSES PALP. TEDS/SCDS IN PLACE. TEMP PM VVI 60 INTACT, SENSING ONLY. STERNAL AND RIGHT LEG DRESSINGS CDI. DENIES DISCOMFORT. REPOSITIONS SELF IN BED. ABD SOFT, BSA X4 VOIDING TO URINAL TO DIFF. HOB UP. BED ALARM ON. C/L IN REACH. CONT CURRENT POC.
--- NOTE | 2017-06-12 23:15 | NUR ---
REASSESSMENT COMPLETED. SEE FLOWSHEET FOR ALL FINDINGS. RESTING WITH NO DISTRESS. AOX4. PERRLA. MAEW. RESP EVEN AND UNLABORED. SHALLOW AT TIMES. LUNG SOUNDS DIM IN BASES. SPO2 96 ON O2 AT 2 LPM NC. TRANSPORTATION ASSOCIATE WEAK COUGH SEEN. FAIR EFFORT WITH INCENTIVE. SR ON THE MONITOR. PULSES PALP. TEDS/SCDS IN PLACE. TEMP PM VVI 60 INTACT, SENSING ONLY. STERNAL AND RIGHT LEG DRESSINGS CDI. DENIES DISCOMFORT. REPOSITIONS SELF IN BED. ABD SOFT, BSA X4 VOIDING TO URINAL TO DISS. HOB UP. BED ALARM ON. C/L IN REACH. CONT CURRENT POC.
[2017-06-13] VITALS (22 sets, daily range): BP systolic 112–143; BP diastolic 69–91
--- NOTE | 2017-06-13 01:00 | NUR ---
VOIDING TO URINAL. NO DISTRESS. POSITIONED SELF FOR COMFORT. VSS. HOB UP. C/L IN REACH. CONT CURRENT POC.
--- NOTE | 2017-06-13 03:15 | NUR ---
REASSESSMENT COMPLETED. SEE FLOWSHEET FOR ALL FINDINGS. RESTING WITH NO DISTRESS. AOX4. PERRLA. MAEW. RESP EVEN AND UNLABORED. SHALLOW AT TIMES. LUNG SOUNDS DIM IN BASES. SPO2 96% ON O2 AT 2 LPM NC. LOCATION MAN WEAK COUGH SEEN. FAIR EFFORT WITH INCENTIVE. SR ON THE MONITOR. PULSES PALP. TEDS/SCDS IN PLACE. TEMP PM VVI 60 INTACT, SENSING ONLY. STERNAL AND RIGHT LEG DRESSINGS CDI. DENIES DISCOMFORT. REPOSITIONS SELF IN BED. ABD SOFT, BSA X4 VOIDING TO URINAL TO DISS. HOB UP. BED ALARM ON. C/L IN REACH. CONT CURRENT POC.
--- NOTE | 2017-06-13 05:00 | NUR ---
SUBSTERNAL DRESSING CHANGED PER ORDERS. UP TO W/C TO RADIOLOGY. ASSISTED TO CHAIR AT BEDSIDE. VSS. SR ON THE MONITOR. C/L AND PO FLUIDS AT BEDSIDE. CONT POC.
[2017-06-13 06:22] LABS: HEMATOCRIT 28.8 % (42.0-54.0); HEMOGLOBIN 9.7 g/dL (13.5-17.5); MCH 29.7 pg (26.0-34.0); MCHC 33.7 g/dL (31.0-37.0); MCV 88.1 fL (80.0-100.0); MEAN PLATELET VOLUME 9.7 fL (7.4-10.4); RBC 3.27 10x6/uL (4.20-6.10); RDW 13.8 % (11.5-14.5); WBC 7.7 10x3/uL (4.8-10.8)
[2017-06-13 06:54] LABS: ALBUMIN 3.1 g/dL (3.4-5.0); ANION GAP 13.2 mmol/L (8-16); BILIRUBIN - TOTAL 0.9 mg/dL (0.2-1.3); CALCIUM 8.8 mg/dL (8.5-10.1); CARBON DIOXIDE 24.4 mmol/L (21.0-32.0); CREATININE - SERUM 1.1 mg/dL (0.6-1.3); POTASSIUM - SERUM 3.6 mmol/L (3.5-5.1); PROTEIN - SERUM 6.3 g/dL (6.4-8.2)
--- NOTE | 2017-06-13 12:06 | OP ---
PATIENT NAME: YAZAN FUNEZ MEDICAL RECORD: [id number] :63 LOCATION:[facility] ADMISSION DATE:06/09/17 SURGEON: VALENTE CUMMINGS MD DATE OF OPERATION: 06/09/2017 SURGEON: Valente Cummings MD ANESTHESIA: General endotracheal, Dr. Rivera. OPERATION PERFORMED: Coronary artery bypass utilizing left internal thoracic to the left anterior descending, reverse saphenous vein segment to the posterolateral branch of the right coronary artery, and reverse saphenous vein graft, sequential first diagonal, sequential obtuse marginal 1, sequential obtuse marginal 2. PREOPERATIVE DIAGNOSIS: Severe occlusive coronary artery disease with compounding anatomy. POSTOPERATIVE DIAGNOSIS: Severe occlusive coronary artery disease with compounding anatomy. INDICATION FOR OPERATION: Compelling anatomy. FINDINGS OF THE OPERATION: The left anterior descending was severely and diffusely diseased and almost totally occluded just past the second diagonal. The posterior descending coronary artery was too calcified and we were unable to open and find a lumen. The second obtuse marginal was small and delicate vessel. The first obtuse marginal was an intramyocardial vessel and of good caliber and quality. The first diagonal was a delicate diffusely diseased vessel, but graftable. The saphenous vein was of excellent quality. The left internal thoracic was of excellent quality. Ventricular function was satisfactory postoperatively. DESCRIPTION OF PROCEDURE: After informed consent, adequate preoperative medication evaluation, the patient was brought to the operating room and placed on the table in the supine position. After induction of general endotracheal anesthesia and application of appropriate monitoring devices, the chest, neck, abdomen, and both legs were prepped and draped in a sterile field utilizing Betadine scrub, alcohol, and Betadine solution. A Betadine-impregnated drape was also used. Saphenous vein was harvested from right thigh and prepared for reverse saphenous vein grafting. The leg was closed over drains utilizing 3-0 Vicryl and skin yisel. A median sternotomy incision was used and dissection carried down to the fascia. Hemostasis was maintained with electrocautery. Sternum was divided. Innominate vein was identified and protected. Left internal thoracic was taken down and prepared for grafting. The patient was given a calculated dose of heparin, cannulated in the standard fashion utilizing 1 aortic, one 2-stage cannula in the atrium and inferior vena cava. The patient was placed on cardiopulmonary bypass, cooled to 32 degrees centigrade. A cross clamp was placed just proximal to the aortic cannula and the patient was given cardioplegic solution through the aortic root. The patient was given a cool induction and cooled maintenance. The patient was given cooled intermittent cardioplegic solution throughout the procedure through the grafts, through the OPERATIVE REPORT [id number] YAZAN FUNEZ or a combination of both. The first vessel to be grafted was the second obtuse marginal, which was grafted end-to-side utilizing running 7-0 Prolene suture. Graft was then measured to the first obtuse marginal which was intramyocardial and a [id number] anastomosis fashioned utilizing running 7-0 Prolene suture. The graft was then measured to the first diagonal and a [id number] anastomosis fashioned utilizing a running 7-0 Prolene suture. The graft was measured back to the aorta and a proximal anastomosis fashioned utilizing running 6-0 Prolene suture. Next, posterolateral branch of the right was grafted end-to-side utilizing running 7-0 Prolene suture. Attempts were made to open the posterior descending; however, it was severely and diffusely diseased and had no lumen. This graft was then taken back to the aorta and the proximal anastomosis fashioned utilizing running 6-0 Prolene suture. Next, left internal thoracic was brought through the hole in pericardium, sutured left anterior descending end-to-side utilizing a running 8-0 Prolene suture. Pedicle was attached to epicardium with 7-0 Prolene suture. The patient was given warm cardioplegic reperfusion and controlled reperfusion. The patient rewarmed to 37 degrees centigrade. Two atrial and 2 ventricular pacing wires were placed and brought out through the epigastric area. The patient was weaned cardiopulmonary bypass. After being stable off bypass, he was given calculated dose of protamine to reverse the heparin. Hemostasis was achieved. A #40 right angle and #36 chest tubes were brought in through the epigastric area and placed in mediastinum. A separate left pleural tube was connected to underwater seal and suction. Chest was again irrigated. Instrument count and sponge count were correct times 2. Chest was closed in layers utilizing #7 wire on the sternum, #2 Vicryl on linea alba and pectoralis fascia. Subcutaneous tissue was approximated with 3-0 Vicryl and skin approximated with 3-0 subcuticular Vicryl. Sterile dressings were applied. The patient tolerated the procedure well and was transferred to [facility] ICU in satisfactory condition. TRANSINT:[id number] Voice Confirmation ID: [id number] DOCUMENT ID: [id number] VALENTE CUMMINGS MD at 1206 CC: [id number] DICTATION DATE: 06/09/17 1550 RABBIT FANCIER: 06/09/17 1809 [place] [address]
--- NOTE | 2017-06-13 19:30 | NUR ---
REPORT RECIEVED ASSESSMENT COMPLETED. SEE FLOW SHEET FOR FURTHER DETAILS. WORKED ON COUGHING AND DEEP BREATHING WITH PT HAD A GOOD I.S. WITH BEST EFFORT OF 1500. POSITIONED PT FOR COMFORT WILL CONTINUE TO MONITOR PT.
--- NOTE | 2017-06-13 21:00 | NUR ---
VISITORS AT BED SIDE WITH PT. WILL CONTINUE TO MONITOR PT.
--- NOTE | 2017-06-13 23:00 | NUR ---
REASSESSMENT COMPLETED. NO ACUTE CHANGES AT THIS TIME. SEE FLOW SHEET FOR DETAILS. PT IN CHAIR SHOWS NO SIGNS OF DISTRESS. WILL CONTINUE TO MONITOR.
[2017-06-14] VITALS (8 sets, daily range): BP systolic 111–157; BP diastolic 66–89
--- NOTE | 2017-06-14 01:00 | NUR ---
PT SLEEPING IN CHAIR. DENIES ANY NEEDS. SHOWS NO SIGN OF DISTRESS. WILL CONTINUE TO MONITOR.
--- NOTE | 2017-06-14 03:00 | NUR ---
REASSESSMENT COMPLETED. NO CHANGES AT THIS TIME. SEE FLOW SHEET FOR FURTHER DETAILS. PT SITTING IN THE CHAIR WITH A LITTLE RESTLESSNESS POSITIONED PT FOR COMFORT. WILL COMTINUE TO MONITOR PT.
--- NOTE | 2017-06-14 05:00 | NUR ---
PT RETURNED FROM XRAY AND PLACED IN THE CHAIR AT BEDSIDE. RIGHT LEG DRESSING CHANGED PER ORDER. POSITIONED FOR COMFORT WILL CONTINUE TO MONITOR PT.
[2017-06-14 06:16] LABS: HEMATOCRIT 27.6 % (42.0-54.0); HEMOGLOBIN 9.2 g/dL (13.5-17.5); MCH 29.5 pg (26.0-34.0); MCHC 33.3 g/dL (31.0-37.0); MCV 88.5 fL (80.0-100.0); MEAN PLATELET VOLUME 9.4 fL (7.4-10.4); RBC 3.12 10x6/uL (4.20-6.10); RDW 13.7 % (11.5-14.5); WBC 6.5 10x3/uL (4.8-10.8)
[2017-06-14 06:34] LABS: ALBUMIN 2.8 g/dL (3.4-5.0); ALKALINE PHOSPHATASE 128 U/L (46-116); BILIRUBIN - TOTAL 0.79 mg/dL (0.2-1.3); CARBON DIOXIDE 23.6 mmol/L (21.0-32.0); CREATININE - SERUM 0.9 mg/dL (0.6-1.3); SODIUM 141 mmol/L (136-145); UREA NITROGEN 15 mg/dL (7-18); eGFR NON AFRICAN AMERICAN > 90 mL/min (90-120)
[2017-06-14 06:42] LABS: CHLORIDE - SERUM 105 mmol/L (98-107)
[2017-06-14 06:43] LABS: ALT (SGPT) 130 U/L (10-68); CALC OSMOLALITY 282 mosm/kg (275-300); GLUCOSE 116 mg/dL (74-106); POTASSIUM - SERUM 2.9 mmol/L (3.5-5.1)
[2017-06-14 07:12] LABS: ALBUMIN 3.1 g/dL (3.4-5.0); ANION GAP 14.3 mmol/L (8-16); BILIRUBIN - TOTAL 0.9 mg/dL (0.2-1.3); CALCIUM 8.7 mg/dL (8.5-10.1); CREATININE - SERUM 1.1 mg/dL (0.6-1.3); POTASSIUM - SERUM 3.3 mmol/L (3.5-5.1); PROTEIN - SERUM 6.6 g/dL (6.4-8.2)
--- NOTE | 2017-06-14 07:15 | NUR ---
REPORT RECIEVED FROM WELL BLOWER NURSE. PT RESTING IN RECLINER. NO S/SX OF ACUTE DISTRESS NOTED AT THIS TIME. ASSESSMENT COMPLETE PER FLOWSHEET. REFER FOR DETAILS. CALL LIGHT IN REACH. VSS. WILL CONT TO ASSESS FOR CHANGES.
[2017-06-14] MEDS ORDERED: HEMOCYTE PLUS C1 CAP PO (08:10)
[2017-06-14] MEDS ORDERED: CORDARONE200 MG PO (08:11)
[2017-06-14] MEDS ORDERED: LOPRESSOR25 MG PO (08:11)
[2017-06-14] MEDS ORDERED: HYDROCODONE-APA1 TAB PO (08:13)
--- NOTE | 2017-06-14 09:52 | NUR ---
Patient Name: YAZAN FUNEZ Encounter No: [id number] : 1965 Primary Insurance: [employer] OUT OF STATE Anticipated DC Date: 06-17-2017 Planned Disposition: Home DCP follow-up note: Anticipate DC this afternoon or tomorrow AM. Patient and family in agreement with discharge plan. No changes to plan. Case management will follow and assist as needed. Paradise Randall
--- NOTE | 2017-06-14 11:00 | NUR ---
REASSESSMENT COMPLETE PER FLOWSHEET. NO CHANGES NOTED AT THIS TIME. FRESH ICE WATER TAKEN TO PT. CALL LIGHT IN REACH.
--- NOTE | 2017-06-14 14:08 | NUR ---
DISCUSSED DISCHARGE INSTRUCTIONS WITH PT AND PT'S . THEY ALSO SPOKE WITH FABIO CASTILLO RN. THE VOICED UNDERSTANDING. NO S/S OF DISTRESS NOTED.
--- NOTE | 2017-06-14 14:15 | NUR ---
PT AMBULATED TO VEHICLE. REFUSED WHEELCHAIR. STEADY GAIT NOTED. NO S/S OF RESP DISTRESS NOTED. ALL BELONGINGS WITH PT.
--- NOTE | 2017-06-21 09:15 | TEE ---
PATIENT:YAZAN FUNEZ MEDICAL RECORD: [id number] LOCATION:[place] [address] AGE OF PATIENT: 52 ADMISSION DATE: 06/09/17 SEX: M REFERRING PHYSICIAN: INTERPRETING PHYSICIAN: NIKA ADAMS MD TRANSESOPHAGEAL ECHOCARDIOGRAM SRIRAM CHARGE Y INDICATIONS: PREMEDICATIONS: PATIENT'S RESPONSE PROCEDURE DOPPLER MEASUREMENTS: LVIT LA PA RA LVOT RVOT Asc. Ao AV Gradient Peak AV Mean AV Area MV Gradient Peak MV Mean MV Area INTERPRETATION: LVd: 4.3 cm LVs: 2.8 cm Doppler: 2-D: COLOR FLOW DOPPLER NORMAL SALINE STUDY: MISCELLANOUS: DIAGNOSIS: PLAN: Waste Picker:4 Dr. Adams Pediatric Critical Care Nurse: 1 JARON BELTRAN COMMENTS: DATE OF SERVICE: 06/10/2017 INTRAOPERATIVE TRANSESOPHAGEAL ECHOCARDIOGRAM REPORT FINDINGS: 1. The aortic valve is a tricuspid valve structure. 2. There is a catheter artifact in the right ventricle. 3. The left ventricle has mild left ventricular hypertrophy with hyperdynamic function. TRANSESOPHAGEAL ECHOCARDIOGRAM REPORT [id number] MABEL FUNEZ 4. The right ventricle is normal size, normal function. 5. Tricuspid valve is structurally normal. 6. The right and left atria appear to be normal size, normal function. 7. Pulmonic valve is not well visualized, but appears to be normal grossly. 8. There is no significant pericardial effusion. CONCLUSIONS: Pre and post CABG pictures appear to show good left ventricular function without significant pericardial effusion. TRANSINT:[id number] Voice Confirmation ID: [id number] DOCUMENT ID: [id number] at 0915 CC: [id number] DICTATION DATE: 06/10/17 0841 TEST ENGINE EVALUATOR: 06/10/17 1046 DIS IN 06/14/17 [place] [id number] [place] [address]
== END 2017-06-14 14:15 | disposition home or self-care (01) | DRG 236 ==
LOC: D.SDCHOLD 05:09 → D.CVICU 05:09 → D.SDCHOLD 07:30 → D.CVICU 14:27
PROVIDERS: ADMIT Internal Medicine Cardiovascular Disease
PROC: 021309W Bypass Coronary Artery, Four or More Arteries from Aorta with Autologous Venous Tissue, Open Approach (ICD-10-PCS; 2017-06-09)
PROC: 06BP0ZZ Excision of Right Saphenous Vein, Open Approach (ICD-10-PCS; 2017-06-09)
PROC: 5A1221Z Performance of Cardiac Output, Continuous (ICD-10-PCS; 2017-06-09)
PROC: B245ZZ4 Ultrasonography of Left Heart, Transesophageal (ICD-10-PCS; 2017-06-09)
PROC: 02100AC Bypass Coronary Artery, One Artery from Thoracic Artery with Autologous Arterial Tissue, Open Approach (ICD-10-PCS; principal; 2017-06-09 07:30)
DX: I25.10 Atherosclerotic heart disease of native coronary artery without angina pectoris (principal); D62 Acute posthemorrhagic anemia; J98.11 Atelectasis; I10 Essential (primary) hypertension; E78.5 Hyperlipidemia, unspecified; E11.9 Type 2 diabetes mellitus without complications; Z79.84 Long term (current) use of oral hypoglycemic drugs

== ENCOUNTER 2017-06-29 03:41 | Emergency (ER) | payer BC ==
[2017-06-10 09:58] VITALS: BMI 29.7
[~2017-06-29 03:41] MED LIST changes: +CORDARONE200 MG PO; +HEMOCYTE PLUS C1 CAP PO; +HYDROCODONE-APA1 TAB PO; +LOPRESSOR25 MG PO
[2017-06-29 04:17] LABS: BASOPHILS 0.5 % (0-2); EOSINOPHILS 3.3 % (0-7); HEMATOCRIT 39.8 % (42.0-54.0); HEMOGLOBIN 12.8 g/dL (13.5-17.5); IMMATURE GRANULOCYTES 0.5 % (0-5); LYMPHOCYTES 38.5 % (15-50); MCH 28.9 pg (26.0-34.0); MCHC 32.2 g/dL (31.0-37.0); MCV 89.8 fL (80.0-100.0); MEAN PLATELET VOLUME 9.2 fL (7.4-10.4); MONOCYTES 7.3 % (2-11); NEUTROPHILS 49.9 % (40-80); RBC 4.43 10x6/uL (4.20-6.10); RDW 13.8 % (11.5-14.5); WBC 8.1 10x3/uL (4.8-10.8)
[2017-06-29 04:23] LABS: PLATELET COUNT 512 10x3/uL (130-400)
[2017-06-29 04:49] LABS: ALBUMIN 3.6 g/dL (3.4-5.0); ANION GAP 11.7 mmol/L (8-16); BILIRUBIN - TOTAL 0.31 mg/dL (0.2-1.3); C-REACTIVE PROTEIN 0.8 mg/dL (0.0-0.9); CALCIUM 9.3 mg/dL (8.5-10.1); CREATININE - SERUM 1.4 mg/dL (0.6-1.3); POTASSIUM - SERUM 4.7 mmol/L (3.5-5.1); PROTEIN - SERUM 7.9 g/dL (6.4-8.2)
[2017-06-29 04:54] LABS: TROPONIN-I 0.096 ng/mL (0.000-0.060)
== END 2017-06-29 06:58 | disposition home or self-care (01) ==
LOC: D.ER 03:41 → D.M2 05:10 → D.ER 06:58
PROVIDERS: Family Medicine
DX: F45.8 Other somatoform disorders (principal); J03.90 Acute tonsillitis, unspecified; E11.65 Type 2 diabetes mellitus with hyperglycemia

== ENCOUNTER → 2017-07-02 08:43 | Outpatient (CLI) | payer BC ==
[2017-06-10 09:58] VITALS: BMI 29.7
[2017-07-02 09:44] LABS: HEMATOCRIT 39.1 % (42.0-54.0); HEMOGLOBIN 12.6 g/dL (13.5-17.5); MCH 27.9 pg (26.0-34.0); MCHC 32.2 g/dL (31.0-37.0); MCV 86.5 fL (80.0-100.0); MEAN PLATELET VOLUME 8.5 fL (7.4-10.4); RBC 4.52 10x6/uL (4.20-6.10); RDW 13.5 % (11.5-14.5)
[2017-07-02 10:00] LABS: ALBUMIN 3.9 g/dL (3.4-5.0); ANION GAP 11.2 mmol/L (8-16); BILIRUBIN - TOTAL 0.45 mg/dL (0.2-1.3); CALCIUM 8.9 mg/dL (8.5-10.1); CARBON DIOXIDE 27.8 mmol/L (21.0-32.0); CREATININE - SERUM 1.2 mg/dL (0.6-1.3); PROTEIN - SERUM 7.9 g/dL (6.4-8.2)
== END | disposition home or self-care (01) ==
LOC: D.RAD 08:43
PROVIDERS: Internal Medicine Cardiovascular Disease
DX: J90 Pleural effusion, not elsewhere classified (principal); D64.9 Anemia, unspecified

== ENCOUNTER → 2017-09-20 08:57 | Outpatient (CLI) | payer OTHER ==
[2017-06-10 09:58] VITALS: BMI 29.7
[2017-09-20 16:57] LABS: CHOL - HDL RATIO 3.5 ratio (2.3-4.9); LDL-HDL RATIO 2.2 ratio (1.5-3.5)
== END | disposition home or self-care (01) ==
LOC: D.ECHO 08:57
PROVIDERS: Internal Medicine Cardiovascular Disease
DX: I25.10 Atherosclerotic heart disease of native coronary artery without angina pectoris (principal)

== ENCOUNTER → 2017-09-20 17:05 | Outpatient (CLI) | payer OTHER ==
[2017-06-10 09:58] VITALS: BMI 29.7
== END | disposition home or self-care (01) ==
LOC: D.LABREF 17:05
DX: I10 Essential (primary) hypertension (principal)